=== PATIENT | female | born 2000 | race Caucasian/White ===

== ENCOUNTER 2019-10-09 13:56 | Emergency (ER) | payer OTHER ==
[~2019-10-09] VITALS: Ht 157.5 cm; Wt 51.3 kg
[2019-10-09] MEDS ORDERED: LEVAQUIN750 MG PO (18:05)
== END 2019-10-09 18:42 | disposition home or self-care (01) ==
LOC: ER 13:56
DX: J06.9 Acute upper respiratory infection, unspecified (principal)

== ENCOUNTER 2019-10-22 17:57 | Emergency (ER) | payer OTHER ==
[~2019-10-22] VITALS: Ht 160 cm; Wt 51.3 kg
[~2019-10-22 17:57] MED LIST: LEVAQUIN750 MG PO
== END 2019-10-23 02:21 | disposition home or self-care (01) ==
LOC: ER 17:57
DX: J11.1 Influenza due to unidentified influenza virus with other respiratory manifestations (principal)

== ENCOUNTER 2019-10-24 10:35 | Outpatient (CLI) | payer OTHER | END 2019-10-24 10:45 | disposition home or self-care (01) | LOC: LAB 10:35 | DX: D69.49 Other primary thrombocytopenia (principal); J10.1 Influenza due to other identified influenza virus with other respiratory manifestations ==

== ENCOUNTER 2019-10-24 13:03 | Emergency (ER) | payer OTHER ==
[~2019-10-24] VITALS: Ht 160 cm; Wt 51.3 kg
== END 2019-10-24 15:44 | disposition home or self-care (01) ==
LOC: ER 13:03
DX: J11.1 Influenza due to unidentified influenza virus with other respiratory manifestations (principal); B34.9 Viral infection, unspecified

== ENCOUNTER 2021-12-23 10:21 | Outpatient (CLI) | payer OTHER | END 2021-12-23 10:31 | disposition home or self-care (01) | LOC: LAB 10:21 | PROVIDERS: ATTEND Surgery | DX: K80.20 Calculus of gallbladder without cholecystitis without obstruction (principal); Z11.59 Encounter for screening for other viral diseases ==

== ENCOUNTER 2021-12-27 05:23 | Day surgery (SDC) | payer OTHER | END 2021-12-27 14:35 | disposition home or self-care (01) | LOC: CIR.AMB 05:23 | PROVIDERS: ATTEND Surgery | DX: K80.10 Calculus of gallbladder with chronic cholecystitis without obstruction (principal); Z91.013 Allergy to seafood; Z88.6 Allergy status to analgesic agent; Z71.6 Tobacco abuse counseling; F17.210 Nicotine dependence, cigarettes, uncomplicated; F12.90 Cannabis use, unspecified, uncomplicated; E16.2 Hypoglycemia, unspecified; M41.80 Other forms of scoliosis, site unspecified ==

== ENCOUNTER 2022-12-14 12:29 | Outpatient (CLI) | payer OTHER | END 2022-12-14 12:40 | disposition home or self-care (01) | LOC: RAD 12:29 | PROVIDERS: ATTEND Internal Medicine Cardiovascular Disease | DX: M12.9 Arthropathy, unspecified (principal); M46.48 Discitis, unspecified, sacral and sacrococcygeal region ==

== ENCOUNTER 2023-08-13 17:08 | Emergency (ER) | payer OTHER ==
[~2023-08-13] VITALS: Ht 160 cm; Wt 54.4 kg
[2023-08-13] MEDS ORDERED: ZOVIRAX400 MG PO (19:25)
== END 2023-08-13 21:40 ==
LOC: ER 17:09
DX: B00.1 Herpesviral vesicular dermatitis (principal); R21 Rash and other nonspecific skin eruption; Z88.6 Allergy status to analgesic agent; Z88.8 Allergy status to other drugs, medicaments and biological substances; Z91.013 Allergy to seafood